=== PATIENT | male | born 1950 | race Caucasian/White ===

== ENCOUNTER 2017-10-18 23:18 | Inpatient (IN) | payer OTHER ==
[~2017-10-18] VITALS: Ht 170.2 cm; Wt 88.7 kg
[2017-10-19 00:43] LABS: BASOPHILS ABSOLUTE AUTO 0.04 K/mm3 (0.00-0.23); BASOPHILS PERCENT AUTO 1 % (0-2); EOSINOPHILS ABSOLUTE AUTO 0.41 K/mm3 (0.00-0.68); EOSINOPHILS PERCENT AUTO 5 % (0-6); Hematocrit 28.2 % (37.0-53.0); Hemoglobin 9.8 g/dL (13.5-17.5); IMMATURE GRAN ABSOLUTE AUTO 0.13 K/mm3 (0.00-0.10); IMMATURE GRAN PERCENT AUTO 2 % (0-1); LYMPHOCYTES ABSOLUTE AUTO 1.41 K/mm3 (0.84-5.20); LYMPHOCYTES PERCENT AUTO 18 % (21-46); MONOCYTES ABSOLUTE AUTO 0.96 K/mm3 (0.16-1.47); MONOCYTES PERCENT AUTO 12 % (4-13); Mean Corpuscular HGB 35.1 pg (26.0-34.0); Mean Corpuscular HGB Conc 34.8 g/dL (31.5-36.5); Mean Corpuscular Volume 101 fL (80-100); Mean Platelet Volume 9.6 fL (9.1-12.4); NEUTROPHILS ABSOLUTE AUTO 4.96 K/mm3 (1.96-9.15); NEUTROPHILS PERCENT AUTO 63 % (41-73); Platelet Count 134 K/mm3 (150-400); RDW Coefficient Variation 15.9 % (11.7-14.2); RDW Standard Deviation 55.7 fL (35.1-46.3); Red Blood Cell Count 2.79 M/mm3 (4.30-5.90); White Blood Cell Count 7.91 K/mm3 (4.00-11.30)
[2017-10-19 00:57] LABS: Alanine Aminotransfer (ALT/SGP 35 U/L (12-78); Albumin, Blood 2.7 g/dL (3.4-5.0); Albumin/Globulin Ratio 0.7 (0.8-1.8); Alk Phos 120 U/L (50-136); Anion Gap 7 mmol/L (6-16); Aspartate Aminotrans (AST/SGOT 57 U/L (12-37); Bilirubin, Total 2.5 mg/dL (0.1-1.0); Blood Urea Nitrogen 26 mg/dL (8-24); Bun/Creatinine Ratio 29.7 (12.0-20.0); CO2, Blood 24 mmol/L (21-32); Calcium, Blood 7.6 mg/dL (8.5-10.1); Chloride, Blood 107 mmol/L (98-108); Creatinine, Blood 0.87 mg/dL (0.60-1.20); Glomerular Filtration Rate >60 (60-); Glucose, Blood 100 mg/dL (70-99); Potassium, Blood 4.1 mmol/L (3.5-5.5); Sodium, Blood 138 mmol/L (136-145); Total Protein, Blood 6.7 g/dL (6.4-8.2); Troponin I 0.016 ng/mL (0.000-0.040)
[2017-10-19] MEDS ORDERED: CELE200 PO (01:20)
[2017-10-19] MEDS ORDERED: Omeprazole20 M1 PO (01:20)
[2017-10-19] MEDS ORDERED: Xalatan2.5 ML BOTHEYES (01:20)
[2017-10-19] MEDS ORDERED: QUET25 PO (01:21)
[2017-10-19] MEDS ORDERED: SERT50 PO (01:21)
[2017-10-19 01:26] LABS: Source, Urine Clean Catch
[2017-10-19 01:28] LABS: Bilirubin, Urine Neg (Neg); Blood, Urine Neg (Neg); Glucose Qualitative, Urine Neg (Neg); Ketones, Urine Neg (Neg); Leukocyte Esterase, Urine Neg (Neg); Nitrite, Urine Neg (Neg); Protein, Urine Neg (Neg); Specific Gravity, Urine 1.015 (1.003-1.022); Urobilinogen, Urine 1+ (Normal)
[2017-10-19 01:39] LABS: Appearance, Urine Clear (Clear); Color, Urine Amber (P-Yellow)
[2017-10-19 06:03] LABS: International Normalized Ratio 1.21; Prothrombin Time Results 12.3 Sec (9.7-11.5)
[2017-10-19 13:45] LABS: Hematocrit 29.6 % (37.0-53.0); Hemoglobin 9.9 g/dL (13.5-17.5)
[2017-10-20 10:16] LABS: BASOPHILS ABSOLUTE AUTO 0.03 K/mm3 (0.00-0.23); BASOPHILS PERCENT AUTO 0 % (0-2); EOSINOPHILS ABSOLUTE AUTO 0.25 K/mm3 (0.00-0.68); EOSINOPHILS PERCENT AUTO 3 % (0-6); Hematocrit 27.8 % (37.0-53.0); Hemoglobin 9.3 g/dL (13.5-17.5); IMMATURE GRAN ABSOLUTE AUTO 0.06 K/mm3 (0.00-0.10); IMMATURE GRAN PERCENT AUTO 1 % (0-1); LYMPHOCYTES ABSOLUTE AUTO 1.03 K/mm3 (0.84-5.20); LYMPHOCYTES PERCENT AUTO 13 % (21-46); MONOCYTES ABSOLUTE AUTO 0.93 K/mm3 (0.16-1.47); MONOCYTES PERCENT AUTO 12 % (4-13); Mean Corpuscular HGB Conc 33.5 g/dL (31.5-36.5); Mean Platelet Volume 9.2 fL (9.1-12.4); NEUTROPHILS ABSOLUTE AUTO 5.42 K/mm3 (1.96-9.15); NEUTROPHILS PERCENT AUTO 70 % (41-73); Platelet Count 109 K/mm3 (150-400); RDW Coefficient Variation 17.2 % (11.7-14.2); RDW Standard Deviation 62.4 fL (35.1-46.3); Red Blood Cell Count 2.66 M/mm3 (4.30-5.90); White Blood Cell Count 7.72 K/mm3 (4.00-11.30)
[2017-10-20 10:17] LABS: Mean Corpuscular Volume 105 fL (80-100)
[2017-10-20 10:37] LABS: Anion Gap 9 mmol/L (6-16); Blood Urea Nitrogen 29 mg/dL (8-24); Bun/Creatinine Ratio 37.3 (12.0-20.0); CO2, Blood 21 mmol/L (21-32); Calcium, Blood 7.1 mg/dL (8.5-10.1); Chloride, Blood 107 mmol/L (98-108); Creatinine, Blood 0.78 mg/dL (0.60-1.20); Glomerular Filtration Rate >60 (60-); Glucose, Blood 134 mg/dL (70-99); Potassium, Blood 4.1 mmol/L (3.5-5.5); Sodium, Blood 137 mmol/L (136-145)
[2017-10-20 20:46] LABS: Albumin, Body Fluid 1.2 g/dL; Lactate Dehydrogenase, Body Fl 568 U/L; Protein, Body Fluid 2.7 g/dL
[2017-10-21 03:58] LABS: BASOPHILS ABSOLUTE AUTO 0.05 K/mm3 (0.00-0.23); BASOPHILS PERCENT AUTO 1 % (0-2); EOSINOPHILS ABSOLUTE AUTO 0.54 K/mm3 (0.00-0.68); EOSINOPHILS PERCENT AUTO 6 % (0-6); Hematocrit 28.8 % (37.0-53.0); Hemoglobin 9.7 g/dL (13.5-17.5); IMMATURE GRAN ABSOLUTE AUTO 0.11 K/mm3 (0.00-0.10); IMMATURE GRAN PERCENT AUTO 1 % (0-1); LYMPHOCYTES ABSOLUTE AUTO 1.28 K/mm3 (0.84-5.20); LYMPHOCYTES PERCENT AUTO 15 % (21-46); MONOCYTES PERCENT AUTO 12 % (4-13); Mean Corpuscular HGB 34.6 pg (26.0-34.0); Mean Corpuscular HGB Conc 33.7 g/dL (31.5-36.5); Mean Corpuscular Volume 103 fL (80-100); Mean Platelet Volume 9.5 fL (9.1-12.4); NEUTROPHILS ABSOLUTE AUTO 5.71 K/mm3 (1.96-9.15); NEUTROPHILS PERCENT AUTO 66 % (41-73); Platelet Count 121 K/mm3 (150-400); RDW Coefficient Variation 17.2 % (11.7-14.2); White Blood Cell Count 8.69 K/mm3 (4.00-11.30)
[2017-10-21 04:10] LABS: International Normalized Ratio 1.26; Prothrombin Time Results 12.8 Sec (9.7-11.5)
[2017-10-21 04:17] LABS: Alanine Aminotransfer (ALT/SGP 28 U/L (12-78); Albumin, Blood 2.2 g/dL (3.4-5.0); Albumin/Globulin Ratio 0.6 (0.8-1.8); Alk Phos 118 U/L (50-136); Anion Gap 7 mmol/L (6-16); Aspartate Aminotrans (AST/SGOT 44 U/L (12-37); Bilirubin, Direct 1.2 mg/dL (0.0-0.3); Bilirubin, Total 2.9 mg/dL (0.1-1.0); Blood Urea Nitrogen 31 mg/dL (8-24); Bun/Creatinine Ratio 35.6 (12.0-20.0); CO2, Blood 25 mmol/L (21-32); Calcium, Blood 7.2 mg/dL (8.5-10.1); Chloride, Blood 105 mmol/L (98-108); Creatinine, Blood 0.87 mg/dL (0.60-1.20); Glomerular Filtration Rate >60 (60-); Glucose, Blood 99 mg/dL (70-99); Potassium, Blood 3.5 mmol/L (3.5-5.5); Sodium, Blood 137 mmol/L (136-145); Total Protein, Blood 6.2 g/dL (6.4-8.2)
[2017-10-22 04:03] LABS: BASOPHILS ABSOLUTE AUTO 0.05 K/mm3 (0.00-0.23); BASOPHILS PERCENT AUTO 1 % (0-2); EOSINOPHILS ABSOLUTE AUTO 0.48 K/mm3 (0.00-0.68); EOSINOPHILS PERCENT AUTO 5 % (0-6); Hemoglobin 9.5 g/dL (13.5-17.5); IMMATURE GRAN ABSOLUTE AUTO 0.09 K/mm3 (0.00-0.10); IMMATURE GRAN PERCENT AUTO 1 % (0-1); LYMPHOCYTES ABSOLUTE AUTO 1.39 K/mm3 (0.84-5.20); LYMPHOCYTES PERCENT AUTO 16 % (21-46); MONOCYTES ABSOLUTE AUTO 0.81 K/mm3 (0.16-1.47); MONOCYTES PERCENT AUTO 9 % (4-13); Mean Corpuscular HGB 34.9 pg (26.0-34.0); Mean Corpuscular HGB Conc 33.9 g/dL (31.5-36.5); Mean Corpuscular Volume 103 fL (80-100); Mean Platelet Volume 9.8 fL (9.1-12.4); NEUTROPHILS ABSOLUTE AUTO 6.01 K/mm3 (1.96-9.15); NEUTROPHILS PERCENT AUTO 68 % (41-73); Platelet Count 132 K/mm3 (150-400); RDW Coefficient Variation 17.1 % (11.7-14.2); RDW Standard Deviation 61.3 fL (35.1-46.3); Red Blood Cell Count 2.72 M/mm3 (4.30-5.90); White Blood Cell Count 8.83 K/mm3 (4.00-11.30)
[2017-10-22 04:28] LABS: Anion Gap 7 mmol/L (6-16); Blood Urea Nitrogen 32 mg/dL (8-24); Bun/Creatinine Ratio 30.8 (12.0-20.0); CO2, Blood 27 mmol/L (21-32); Calcium, Blood 7.1 mg/dL (8.5-10.1); Chloride, Blood 103 mmol/L (98-108); Creatinine, Blood 1.04 mg/dL (0.60-1.20); Glomerular Filtration Rate >60 (60-); Glucose, Blood 103 mg/dL (70-99); Potassium, Blood 3.3 mmol/L (3.5-5.5); Sodium, Blood 137 mmol/L (136-145)
[2017-10-22 12:08] LABS: HBSAG SCREEN Negative (Negative); HEP B CORE AB, TOT Negative (Negative); HEP C VIRUS AB <0.1 (0.0-0.9)
[2017-10-23 16:22] LABS: Percent Saturation 31.5 % (20.0-50.0)
[2017-10-25 04:38] LABS: Anion Gap 7 mmol/L (6-16); Blood Urea Nitrogen 28 mg/dL (8-24); Bun/Creatinine Ratio 27.2 (12.0-20.0); CO2, Blood 27 mmol/L (21-32); Calcium, Blood 7.2 mg/dL (8.5-10.1); Chloride, Blood 101 mmol/L (98-108); Creatinine, Blood 1.03 mg/dL (0.60-1.20); Glomerular Filtration Rate >60 (60-); Glucose, Blood 102 mg/dL (70-99); Potassium, Blood 3.4 mmol/L (3.5-5.5); Sodium, Blood 135 mmol/L (136-145)
[2017-10-25 06:12] LABS: COMPLEMENT C3, SERUM 148 mg/dL (82-167); COMPLEMENT C4, SERUM 16 mg/dL (14-44)
[2017-10-26 04:43] LABS: BASOPHILS ABSOLUTE AUTO 0.07 K/mm3 (0.00-0.23); BASOPHILS PERCENT AUTO 1 % (0-2); EOSINOPHILS ABSOLUTE AUTO 0.52 K/mm3 (0.00-0.68); EOSINOPHILS PERCENT AUTO 5 % (0-6); Hematocrit 29.7 % (37.0-53.0); Hemoglobin 10.2 g/dL (13.5-17.5); IMMATURE GRAN ABSOLUTE AUTO 0.09 K/mm3 (0.00-0.10); IMMATURE GRAN PERCENT AUTO 1 % (0-1); LYMPHOCYTES ABSOLUTE AUTO 1.59 K/mm3 (0.84-5.20); LYMPHOCYTES PERCENT AUTO 17 % (21-46); MONOCYTES ABSOLUTE AUTO 1.04 K/mm3 (0.16-1.47); MONOCYTES PERCENT AUTO 11 % (4-13); Mean Corpuscular HGB 35.3 pg (26.0-34.0); Mean Corpuscular HGB Conc 34.3 g/dL (31.5-36.5); Mean Corpuscular Volume 103 fL (80-100); Mean Platelet Volume 9.6 fL (9.1-12.4); NEUTROPHILS ABSOLUTE AUTO 6.33 K/mm3 (1.96-9.15); NEUTROPHILS PERCENT AUTO 66 % (41-73); Platelet Count 186 K/mm3 (150-400); RDW Coefficient Variation 16.6 % (11.7-14.2); RDW Standard Deviation 62.5 fL (35.1-46.3); Red Blood Cell Count 2.89 M/mm3 (4.30-5.90); White Blood Cell Count 9.64 K/mm3 (4.00-11.30)
[2017-10-26 05:04] LABS: Anion Gap 9 mmol/L (6-16); Blood Urea Nitrogen 26 mg/dL (8-24); Bun/Creatinine Ratio 26.4 (12.0-20.0); CO2, Blood 24 mmol/L (21-32); Calcium, Blood 7.2 mg/dL (8.5-10.1); Chloride, Blood 101 mmol/L (98-108); Creatinine, Blood 0.98 mg/dL (0.60-1.20); Glomerular Filtration Rate >60 (60-); Glucose, Blood 98 mg/dL (70-99); Potassium, Blood 3.3 mmol/L (3.5-5.5); Sodium, Blood 134 mmol/L (136-145)
[2017-10-26] MEDS ORDERED: ACET325 PO (10:01)
[2017-10-26] MEDS ORDERED: ALBU2.5V5 NEB (10:02)
[2017-10-26] MEDS ORDERED: FURO80 PO (10:03)
[2017-10-26] MEDS ORDERED: DOCU100 PO (10:03)
[2017-10-26] MEDS ORDERED: Oxycodone-Apap1 EAC3 PO (10:05)
[2017-10-26] MEDS ORDERED: GAVILAX17 GM PO (10:06)
[2017-10-26] MEDS ORDERED: SPIR50 PO (10:06)
[2017-10-27 16:07] LABS: ANTI-DSDNA ANTIBODIES 1 IU/mL (0-9); RNP ANTIBODIES <0.2 AI (0.0-0.9); SJOGREN'S ANTI-SS-A <0.2 AI (0.0-0.9); SJOGREN'S ANTI-SS-B <0.2 AI (0.0-0.9); SMITH ANTIBODIES <0.2 AI (0.0-0.9)
== END 2017-10-26 12:00 | disposition home or self-care (01) | DRG 163 ==
LOC: ER 23:18 → ERHOLD 10-19 05:39 → ICUW 10-19 05:39 → PCU 10-19 05:39 → ICUW 10-19 07:38 → PCU 10-22 15:46
PROVIDERS: Emergency Medicine; Hospitalist; Internal Medicine; Internal Medicine Gastroenterology; Surgery
PROC: 0W9930Z Drainage of Right Pleural Cavity with Drainage Device, Percutaneous Approach (ICD-10-PCS; 2017-10-19)
PROC: 0BCN4ZZ Extirpation of Matter from Right Pleura, Percutaneous Endoscopic Approach (ICD-10-PCS; 2017-10-19)
PROC: 0BQT0ZZ Repair Diaphragm, Open Approach (ICD-10-PCS; principal; 2017-10-19 11:00)
PROC: 0PS104Z Reposition 1 to 2 Ribs with Internal Fixation Device, Open Approach (ICD-10-PCS; 2017-10-19 11:00)
DX: S27.809A Unspecified injury of diaphragm, initial encounter (principal); J96.01 Acute respiratory failure with hypoxia; S27.2XXA Traumatic hemopneumothorax, initial encounter; S32.010A Wedge compression fracture of first lumbar vertebra, initial encounter for closed fracture; S27.321A Contusion of lung, unilateral, initial encounter; R18.8 Other ascites; S22.41XA Multiple fractures of ribs, right side, initial encounter for closed fracture; J90 Pleural effusion, not elsewhere classified; J98.11 Atelectasis; T79.7XXA Traumatic subcutaneous emphysema, initial encounter; K74.60 Unspecified cirrhosis of liver; H40.9 Unspecified glaucoma; E87.6 Hypokalemia; K21.9 Gastro-esophageal reflux disease without esophagitis; V86.99XA Unspecified occupant of other special all-terrain or other off-road motor vehicle injured in nontraffic accident, initial encounter; Z79.899 Other long term (current) drug therapy; Z86.73 Personal history of transient ischemic attack (TIA), and cerebral infarction without residual deficits; Z79.82 Long term (current) use of aspirin
CPT/HCPCS: 31500; 36415; 71045; 71046; 71260; 76700; 80048; 80053; 81003; 82042; 82105; 82248; 82390; 82728; 83516; 83540; 83550; 83615; 83880; 84157; 84466; 84484; 85014; 85018; 85025; 85610; 85730; 86317; 86704; 86708; 86803; 86850; 86900; 86901; 87340; 93005; 93010; 94640; 94667; 94760; 96374; 96375; 96376; 97110; 97116; 97162; 97530; 99285-25; G8978; G8979; J0295; J0330; J1650; J1940; J1956; J2001; J2710; J3010; J3411; J7120; Q9967

== ENCOUNTER 2018-12-18 12:50 | Day surgery (SDC) | payer OTHER ==
[~2018-12-18] VITALS: Ht 172.7 cm; Wt 77.0 kg
[~2018-12-18 12:50] MED LIST: ACET325 PO; ALBU2.5V5 NEB; CELE200 PO; DOCU100 PO; FURO80 PO; GAVILAX17 GM PO; Omeprazole20 M1 PO; Oxycodone-Apap1 EAC3 PO; QUET25 PO; SERT50 PO; SPIR50 PO; Xalatan2.5 ML BOTHEYES
[2018-12-18] MEDS ORDERED: HYDHCL25 (13:24)
--- NOTE | 2018-12-18 15:10 | NUR ---
12/18/18 1510 Silvia Waldron PT INSTRUCTED TO REMAIN ON LIQUID DIET FOR THE REST OF THE DAY AND RESUME REGULAR DIET TOMORROW TOLERATED. PT AND SPOUSE, DENNIS, EXPRESSED UNDERSTANDING.
== END 2018-12-18 14:39 | disposition home or self-care (01) ==
LOC: ORSCSDS 12:50
PROVIDERS: Internal Medicine Gastroenterology
PROC: 06L38CZ Occlusion of Esophageal Vein with Extraluminal Device, Via Natural or Artificial Opening Endoscopic (ICD-10-PCS; principal; 2018-12-18 14:00)
DX: Z13.810 Encounter for screening for upper gastrointestinal disorder (principal); K74.69 Other cirrhosis of liver; I85.10 Secondary esophageal varices without bleeding; K76.6 Portal hypertension; K31.89 Other diseases of stomach and duodenum; Z86.73 Personal history of transient ischemic attack (TIA), and cerebral infarction without residual deficits; E78.5 Hyperlipidemia, unspecified; Z79.899 Other long term (current) drug therapy; Z79.82 Long term (current) use of aspirin
CPT/HCPCS: J2704; J7120

== ENCOUNTER → 2019-01-02 | Outpatient (CLI) | payer OTHER ==
[~2019-01-02] MED LIST changes: +HYDHCL25
== END | disposition home or self-care (01) ==
LOC: LAB SHORT 13:05 → LAB EV 13:05
DX: R30.9 Painful micturition, unspecified (principal)
CPT/HCPCS: 87086

== ENCOUNTER 2019-01-04 12:49 | Day surgery (SDC) | payer OTHER ==
--- NOTE | 2019-01-04 14:11 | NUR ---
01/04/19 1411 Urszula East PT DRINKING WATER IN [employer] [facility] FOR THE FEEBLE-MINDED. DR. GREENE INFORMED AND CHOSE TO RESCHEDULE PROCEDURE.
== END 2019-01-04 14:05 | disposition home or self-care (01) ==
LOC: ORSCSDS 12:49
DX: I85.00 Esophageal varices without bleeding (principal); Z53.9 Procedure and treatment not carried out, unspecified reason
CPT/HCPCS: J2704; J7120

== ENCOUNTER 2019-01-13 10:53 | Day surgery (SDC) | payer OTHER ==
[~2019-01-13] VITALS: Ht 172.7 cm; Wt 77.6 kg
== END 2019-01-13 13:00 | disposition home or self-care (01) ==
LOC: ORSCSDS 10:53
PROVIDERS: Internal Medicine Gastroenterology
PROC: 06L38CZ Occlusion of Esophageal Vein with Extraluminal Device, Via Natural or Artificial Opening Endoscopic (ICD-10-PCS; principal; 2019-01-13 15:30)
DX: I85.00 Esophageal varices without bleeding (principal); F41.8 Other specified anxiety disorders; I10 Essential (primary) hypertension; K74.60 Unspecified cirrhosis of liver; K76.6 Portal hypertension; K31.89 Other diseases of stomach and duodenum; Z79.899 Other long term (current) drug therapy; I25.2 Old myocardial infarction; Z79.82 Long term (current) use of aspirin
CPT/HCPCS: J2704; J7120

== ENCOUNTER 2019-04-02 08:32 | Day surgery (SDC) | payer OTHER ==
--- NOTE | 2019-04-02 10:16 | NUR ---
PATIENT SITTING UP IN BED AFTER 30 MINUTES OF LAYING ON HIS RIGHT SIDE. DRINKING COFFEE.
--- NOTE | 2019-04-02 10:29 | NUR ---
BANDAIDE NOTED TO RIGHT LATERAL TORSO BELOW THE RIB CAGE. INTACT WTIH NO VISIBLE DRAINAGE, SWELLING, ERYTHEMA OR BRUISING NOTED. SKIN FEELS SOFT WITH NO NOTED HEMATOMA. PATIENT C/O 4/10 DULL PAIN TO BX SITE AND STATES IT'S "NORMAL". DECLINES ANALGESIC. OFFERED TO CALL THE DOCTOR TO GET AN ORDER.
--- NOTE | 2019-04-02 10:54 | NUR ---
REPORT FROM WALI RICE RN. BIOPSY SITE WITHOUT HEMATOMA, BLEEDING. PT STATES " PAIN INS SUBSIDING". SITTING UP DRINKING COFFEE.
--- NOTE | 2019-04-02 11:26 | NUR ---
Dressing to procedure site clean, dry, intact with no visible drainage, swelling, erythema or bruising noted. Discharge instructions reviewed with patient. Patient verbalizes understanding. Copy given to patient to take home. ALL BELONINGS RETURNED TO PATIENT.
== END 2019-04-02 23:12 | disposition home or self-care (01) ==
LOC: US 08:32
DX: K74.60 Unspecified cirrhosis of liver (principal); K75.9 Inflammatory liver disease, unspecified; I10 Essential (primary) hypertension; F41.9 Anxiety disorder, unspecified; F32.9 Major depressive disorder, single episode, unspecified; K21.9 Gastro-esophageal reflux disease without esophagitis; Z79.899 Other long term (current) drug therapy; Z79.82 Long term (current) use of aspirin; Z88.8 Allergy status to other drugs, medicaments and biological substances
CPT/HCPCS: 47000; 76942; 88307; 88313

== ENCOUNTER 2019-08-25 10:19 | Day surgery (SDC) | payer OTHER ==
[~2019-08-25] VITALS: Ht 172.7 cm; Wt 79.2 kg
[~2019-08-25 10:19] MED LIST changes: +ASPIR 8181 MG PO; +ATOR10 PO; +CLON1 PO; +FERROUSUL325 MG PO; +HYDHCL25 PO; +Norco 10-325 T1 EACH PO; +OMEPRAZOLE20 MG PO; +POTA8 PO; +[UNRECOGNIZED DRUG - OTHER] PO
== END 2019-08-25 11:59 | disposition home or self-care (01) ==
LOC: ORSCSDS 10:19
PROVIDERS: Internal Medicine Gastroenterology
PROC: 0DJ08ZZ Inspection of Upper Intestinal Tract, Via Natural or Artificial Opening Endoscopic (ICD-10-PCS; principal; 2019-08-25 11:30)
DX: K74.60 Unspecified cirrhosis of liver (principal); Z13.810 Encounter for screening for upper gastrointestinal disorder; K21.9 Gastro-esophageal reflux disease without esophagitis; K76.6 Portal hypertension; K31.89 Other diseases of stomach and duodenum; I10 Essential (primary) hypertension; E78.5 Hyperlipidemia, unspecified; Z86.73 Personal history of transient ischemic attack (TIA), and cerebral infarction without residual deficits; F41.8 Other specified anxiety disorders; Z79.82 Long term (current) use of aspirin; Z79.899 Other long term (current) drug therapy
CPT/HCPCS: J2704; J7120

== ENCOUNTER 2020-12-12 14:21 | Observation (INO) | payer OTHER ==
[~2020-12-12] VITALS: Ht 172.7 cm; Wt 70.3 kg
[2020-12-12] MEDS ORDERED: CALCIUM 600 +1 EA11 PO (14:49)
[2020-12-12] MEDS ORDERED: FURO40 PO ×2 (14:50→18:49)
[2020-12-12] MEDS ORDERED: NEURONTIN600 MG PO (14:50)
[2020-12-12] MEDS ORDERED: Hydroxyzine HCl50 MG PO (14:51)
[2020-12-12] MEDS ORDERED: MELA3 PO (14:51)
[2020-12-12] MEDS ORDERED: OMEP20ER PO (14:51)
[2020-12-12] MEDS ORDERED: TIMO.5OPSO LEFTEYE (14:52)
[2020-12-12] MEDS ORDERED: SERT100 PO (14:52)
[2020-12-12 15:19] LABS: BASOPHILS ABSOLUTE AUTO 0.07 K/mm3 (0.00-0.23); BASOPHILS PERCENT AUTO 1 % (0-2); EOSINOPHILS ABSOLUTE AUTO 0.46 K/mm3 (0.00-0.68); EOSINOPHILS PERCENT AUTO 5 % (0-6); Hematocrit 29.6 % (37.0-53.0); Hemoglobin 10.4 g/dL (13.5-17.5); IMMATURE GRAN ABSOLUTE AUTO 0.06 K/mm3 (0.00-0.10); IMMATURE GRAN PERCENT AUTO 1 % (0-1); LYMPHOCYTES ABSOLUTE AUTO 1.64 K/mm3 (0.84-5.20); LYMPHOCYTES PERCENT AUTO 19 % (21-46); MONOCYTES ABSOLUTE AUTO 1.15 K/mm3 (0.16-1.47); MONOCYTES PERCENT AUTO 14 % (4-13); Mean Corpuscular HGB 33.8 pg (26.0-34.0); Mean Corpuscular HGB Conc 35.1 g/dL (31.5-36.5); Mean Corpuscular Volume 96 fL (80-100); Mean Platelet Volume 10.5 fL (9.1-12.4); NEUTROPHILS ABSOLUTE AUTO 5.16 K/mm3 (1.96-9.15); NEUTROPHILS PERCENT AUTO 60 % (41-73); Platelet Count 140 K/mm3 (150-400); RDW Coefficient Variation 16.6 % (11.7-14.2); RDW Standard Deviation 58.7 fL (35.1-46.3); Red Blood Cell Count 3.08 M/mm3 (4.30-5.90); White Blood Cell Count 8.54 K/mm3 (4.00-11.30)
[2020-12-12 15:37] LABS: Albumin, Blood 1.6 g/dL (3.4-5.0); Albumin/Globulin Ratio 0.3 (0.8-1.8); Bilirubin, Total 1.5 mg/dL (0.1-1.0); Bun/Creatinine Ratio 11.7 (12.0-20.0); Calcium, Blood 7.7 mg/dL (8.5-10.1); Creatinine, Blood 1.37 mg/dL (0.60-1.20); Globulin, Blood 4.6 g/dL (2.2-4.0); Magnesium, Blood 1.9 mg/dL (1.6-2.4); Potassium, Blood 4.2 mmol/L (3.5-5.5); Total Protein, Blood 6.2 g/dL (6.4-8.2); Troponin I 0.016 ng/mL (0.000-0.040)
[2020-12-12 15:42] LABS: Thyroid Stimulating Hormone 1.59 uIU/mL (0.360-4.800)
[2020-12-12 15:45] LABS: International Normalized Ratio 1.36
[2020-12-12] MEDS ORDERED: FOLI1 PO (18:49)
[2020-12-12] MEDS ORDERED: LATA.005SO BOTHEYES (18:51)
[2020-12-12 19:00] LABS: SARS-Cov-2 (COVID-19) PCR, MMC NEGATIVE (NEGATIVE)
--- NOTE | 2020-12-12 22:45 | NUR ---
REPORT RECEIVED FROM ARINA GUZMAN RN. PT TRANSPORTED TO MEDICAL FLOOR VIA GURNEY, AMBULATED SELF TO BED WITH ASSIST OF 1, STEADY BUT WEAK GAIT. PT SETTLED IN TO ROOM, VS AND WT TAKEN. IN NAD. NO ACUTE NEEDS ASSESSED AT THIS TIME. ORIENTED TO ROOM AND USE OF CALL LIGHT. BED IN LOW AND LOCKED POSITION WITH ALARMS ON.
--- NOTE | 2020-12-13 04:24 | NUR ---
SHIFT SUMMARY PT ASLEEP, IN NAD. NO ACUTE CONCERNS TO REPORT SINCE ARRIVAL TO MEDICAL FLOOR. APPEARED TO SLEEP ON AND OFF T/O NIGHT. VS REVIEWED,WNL. NO CARDIAC EVENTS REPORTED OVERNIGHT. NO S/S RESP DISTRESS. NO ACUTE NEEDS ASSESSED AT THIS TIME. CALL LIGHT, POSSESSIONS IN REACH, BED IN LOW AND LOCKED POSITION WITH ALARMS ON. WILL CONTINUE TO PROVIDE CARE UNTIL REPORT GIVEN TO ONCOMING RN.
[2020-12-13 05:28] LABS: Bun/Creatinine Ratio 12.5 (12.0-20.0); Calcium, Blood 7.7 mg/dL (8.5-10.1); Creatinine, Blood 1.36 mg/dL (0.60-1.20); Potassium, Blood 4.3 mmol/L (3.5-5.5)
--- NOTE | 2020-12-13 18:01 | NUR ---
Alert and oriented x 1, Vital signs are stable. Blood culture is positive for gram positive cocci. Start Vancomycin and Ceftriaxone for PNA. worked with PT/OT for strength and endurance , able to walk around the room. IV fluid LR infusing at 60 ml/hr. One person assist with ADLS . Continue to monitor.
--- NOTE | 2020-12-14 07:33 | NUR ---
no changes noted for Conrad from previous shift. patient slept well overnight without any complaints of pain or discomfort.
--- NOTE | 2020-12-14 18:57 | NUR ---
Alert and oriented x3 , hard of hearing , however used hearing aids. Continue on Vancomycin and Rocephine for PNA, No adverse effects noted. vital signs are stable. Ambulate with walker with SBA. On room air , no SOB noted. Worked with PT /OT for strength and endurance , it was tolerated. Continue to monitor.
[2020-12-15 04:33] LABS: Hemoglobin 10.7 g/dL (13.5-17.5); Mean Corpuscular HGB 33.5 pg (26.0-34.0); Mean Corpuscular HGB Conc 34.5 g/dL (31.5-36.5); Mean Corpuscular Volume 97 fL (80-100); Platelet Count 127 K/mm3 (150-400); RDW Coefficient Variation 16.5 % (11.7-14.2); RDW Standard Deviation 59.2 fL (35.1-46.3); Red Blood Cell Count 3.19 M/mm3 (4.30-5.90); White Blood Cell Count 9.22 K/mm3 (4.00-11.30)
[2020-12-15 04:57] LABS: Albumin, Blood 1.5 g/dL (3.4-5.0); Albumin/Globulin Ratio 0.3 (0.8-1.8); Bilirubin, Total 1.3 mg/dL (0.1-1.0); Bun/Creatinine Ratio 16.7 (12.0-20.0); Calcium, Blood 7.8 mg/dL (8.5-10.1); Creatinine, Blood 1.5 mg/dL (0.60-1.20); Globulin, Blood 4.4 g/dL (2.2-4.0); Potassium, Blood 4.4 mmol/L (3.5-5.5); Total Protein, Blood 5.9 g/dL (6.4-8.2)
--- NOTE | 2020-12-15 05:13 | NUR ---
patient feeling much better. still feels SOB with conversation or min exertion. Conrad has been oob to baathroom independently without 02. He has learned to turn off the bed alarm and walk into bathroom without desaturation. No complaints of discomfort .
[2020-12-15] MEDS ORDERED: CEFD300 PO (12:31)
[2020-12-15 13:20] LABS: Vancomycin, Trough 10.1 ug/mL (5.0-10.0)
== END 2020-12-15 13:29 | disposition home health service (06) ==
LOC: ER 14:21 → MEDS 14:22
PROVIDERS: Emergency Medicine; Internal Medicine; ADMIT Internal Medicine
DX: J96.01 Acute respiratory failure with hypoxia (principal); R07.9 Chest pain, unspecified; I45.10 Unspecified right bundle-branch block; I95.9 Hypotension, unspecified; J18.9 Pneumonia, unspecified organism; K74.60 Unspecified cirrhosis of liver; D64.9 Anemia, unspecified; N18.30 Chronic kidney disease, stage 3 unspecified; R59.9 Enlarged lymph nodes, unspecified; K76.6 Portal hypertension; K80.20 Calculus of gallbladder without cholecystitis without obstruction; I08.3 Combined rheumatic disorders of mitral, aortic and tricuspid valves; Z88.8 Allergy status to other drugs, medicaments and biological substances; Z86.16 Personal history of COVID-19; Z20.822 Contact with and (suspected) exposure to COVID-19; Z99.81 Dependence on supplemental oxygen
CPT/HCPCS: 36415; 71045; 71260; 80048; 80053; 80202; 82140; 83605; 83735; 83880; 84145; 84443; 84484; 85025; 85027; 85610; 87040; 87077; 87186; 93005; 93010; 93306; 97110; 97116; 97162; 97530; 99285-25; A9270; J0696; J1650; J3370; J7050; J7120; Q9967; U0004

== ENCOUNTER 2020-12-17 19:27 | Inpatient (IN) | payer OTHER ==
[~2020-12-17] VITALS: Ht 172.7 cm; Wt 75.7 kg
[~2020-12-17 19:27] MED LIST changes: +CEFD300 PO; +FOLI1 PO; +FURO40 PO; +Hydroxyzine HCl50 MG PO; +LATA.005SO BOTHEYES; +MELA3 PO; +NEURONTIN600 MG PO; +OMEP20ER PO; +OYSTER SHELL 51 EAC2 PO; +SERT100 PO; +TIMO.5OPSO LEFTEYE
[2020-12-17 20:01] LABS: BASOPHILS ABSOLUTE AUTO 0.12 K/mm3 (0.00-0.23); BASOPHILS PERCENT AUTO 1 % (0-2); EOSINOPHILS ABSOLUTE AUTO 0.84 K/mm3 (0.00-0.68); EOSINOPHILS PERCENT AUTO 5 % (0-6); Hematocrit 35.7 % (37.0-53.0); Hemoglobin 12.2 g/dL (13.5-17.5); IMMATURE GRAN ABSOLUTE AUTO 0.43 K/mm3 (0.00-0.10); IMMATURE GRAN PERCENT AUTO 2 % (0-1); LYMPHOCYTES ABSOLUTE AUTO 2.56 K/mm3 (0.84-5.20); LYMPHOCYTES PERCENT AUTO 14 % (21-46); MONOCYTES ABSOLUTE AUTO 2.09 K/mm3 (0.16-1.47); MONOCYTES PERCENT AUTO 12 % (4-13); Mean Corpuscular HGB 33.9 pg (26.0-34.0); Mean Corpuscular HGB Conc 34.2 g/dL (31.5-36.5); Mean Corpuscular Volume 99 fL (80-100); Mean Platelet Volume 9.9 fL (9.1-12.4); NEUTROPHILS ABSOLUTE AUTO 11.81 K/mm3 (1.96-9.15); NEUTROPHILS PERCENT AUTO 66 % (41-73); Platelet Count 209 K/mm3 (150-400); RDW Coefficient Variation 16.8 % (11.7-14.2); White Blood Cell Count 17.85 K/mm3 (4.00-11.30)
[2020-12-17 20:21] LABS: Alanine Aminotransfer (ALT/SGP 38 U/L (12-78); Albumin, Blood 1.8 g/dL (3.4-5.0); Albumin/Globulin Ratio 0.3 (0.8-1.8); Alk Phos 157 U/L (50-136); Anion Gap 13 mmol/L (6-16); Aspartate Aminotrans (AST/SGOT 85 U/L (12-37); Bilirubin, Total 1.2 mg/dL (0.1-1.0); Blood Urea Nitrogen 29 mg/dL (8-24); Bun/Creatinine Ratio 19.6 (12.0-20.0); CO2, Blood 17 mmol/L (21-32); Chloride, Blood 104 mmol/L (98-108); Creatinine, Blood 1.48 mg/dL (0.60-1.20); Globulin, Blood 5.6 g/dL (2.2-4.0); Glomerular Filtration Rate 47 (60-); Glucose, Blood 144 mg/dL (70-99); Sodium, Blood 134 mmol/L (136-145); Total Protein, Blood 7.4 g/dL (6.4-8.2); Troponin I <0.015 ng/mL (0.000-0.040)
[2020-12-17 21:39] LABS: SARS-Cov-2 (COVID-19) PCR, MMC POSITIVE (NEGATIVE)
[2020-12-18 00:41] LABS: Source, Urine Clean Catch
[2020-12-18 00:47] LABS: Bilirubin, Urine Neg (Neg); Blood, Urine Neg (Neg); Glucose Qualitative, Urine Neg (Neg); Ketones, Urine 1+ (Neg); Leukocyte Esterase, Urine Neg (Neg); Nitrite, Urine Neg (Neg); Protein, Urine 1+ (Neg); Urobilinogen, Urine NORM (Normal)
[2020-12-18 00:50] LABS: Appearance, Urine Clear (Clear); Color, Urine Yellow (P-Yellow)
--- NOTE | 2020-12-18 02:43 | NUR ---
ADMIT NOTE PT ARRIVED TO PCU FROM ED VIA ED STRETCHER AT APPROX 0145. PT WAS SLID BY 3 STAFF FROM ED STRETCHER TO PCU BED. PT A&OX4. ANSWERS QUESTIONS APPROPRIATELY. SP02>90% ON 15L OXYMIZER. PT SOB W/ ANY EXERTION. VISIBLY TACHYPENIC AFTER ROLLING SIDE TO SIDE TO REMOVE EXCESS LINENS. TELEMETRY READS NSR, HR 60'S-70'S. ABX INFUSING PER EMAR. PT ORIENTED TO ROOM, CALL LIGHT. TO BRING IN MEDICATION LIST AND ADVANCED DIRECTIVE IN AM. CALL LIGHT IN REACH.
[2020-12-18 03:50] LABS: BASOPHILS ABSOLUTE AUTO 0.04 K/mm3 (0.00-0.23); BASOPHILS PERCENT AUTO 0 % (0-2); EOSINOPHILS ABSOLUTE AUTO 0.15 K/mm3 (0.00-0.68); EOSINOPHILS PERCENT AUTO 1 % (0-6); Hematocrit 28.3 % (37.0-53.0); Hemoglobin 9.8 g/dL (13.5-17.5); IMMATURE GRAN ABSOLUTE AUTO 0.21 K/mm3 (0.00-0.10); IMMATURE GRAN PERCENT AUTO 2 % (0-1); LYMPHOCYTES ABSOLUTE AUTO 0.63 K/mm3 (0.84-5.20); LYMPHOCYTES PERCENT AUTO 5 % (21-46); MONOCYTES ABSOLUTE AUTO 0.67 K/mm3 (0.16-1.47); MONOCYTES PERCENT AUTO 6 % (4-13); Mean Corpuscular HGB 33.8 pg (26.0-34.0); Mean Corpuscular HGB Conc 34.6 g/dL (31.5-36.5); Mean Corpuscular Volume 98 fL (80-100); Mean Platelet Volume 10.4 fL (9.1-12.4); NEUTROPHILS ABSOLUTE AUTO 10.44 K/mm3 (1.96-9.15); NEUTROPHILS PERCENT AUTO 86 % (41-73); Platelet Count 118 K/mm3 (150-400); RDW Coefficient Variation 16.8 % (11.7-14.2); RDW Standard Deviation 59.9 fL (35.1-46.3); White Blood Cell Count 12.14 K/mm3 (4.00-11.30)
[2020-12-18 04:22] LABS: Albumin, Blood 1.3 g/dL (3.4-5.0); Albumin/Globulin Ratio 0.3 (0.8-1.8); Bilirubin, Total 1.1 mg/dL (0.1-1.0); Bun/Creatinine Ratio 20.7 (12.0-20.0); Calcium, Blood 7.4 mg/dL (8.5-10.1); Creatinine, Blood 1.35 mg/dL (0.60-1.20); Globulin, Blood 4.2 g/dL (2.2-4.0); Potassium, Blood 4.4 mmol/L (3.5-5.5); Total Protein, Blood 5.5 g/dL (6.4-8.2)
--- NOTE | 2020-12-18 05:14 | NUR ---
SHIFT SUMMARY NO ACUTE CHANGES SINCE ADMIT. PT A&OX4. SP02>90% ON 15L NC. SOB W/ ANY EXERTION. TELEMETRY READS NSR, HR 60'S. PT RESTED IN ROOM, HAD TROUBLE FALLING ASLEEP. CALL LIGHT IN REACH. WILL GIVE REPORT TO ONCOMING NURSE.
--- NOTE | 2020-12-18 10:54 | NUR ---
CARE ASSUMPTION: PT ALERT AND ORIENTED X4. NEURO WNL. DENIES NUMBNESS/TINGLING. ON 12L OXYMIZER SATING LOW 90'S. DESATS WITH ACTIVITY IN BED. BED BATH THIS AM. ABLE TO TURN SELF IN BED. UPPER LOBES SONDING CLEAR AND DIM IN BASES. NO COUGH AT THIS TIME. SPUTUM WAITING TO BE COLLECTED. TELE SHOWING SINUS WITH HR 60-70'S. BP HAS BEEN SOFT. MANUAL BP TAKEN THIS AM. DR. ANDERSON AWARE. WILL CONTINUE TO MONITOR. PPP. NO SIGNS OF EDEMA. BOWEL TONES PRESENT. DENIES ABDOMINAL PAIN/NAUSEA. USING URINAL AT BEDSIDE. NPO AT THIS TIME. ABLE TO TAKE MORNING PILLS WITH WATER. LEFT UPPER ARM IV SALINE LOCKED AND FLUSHING WELL. WILL CONTINUE TO MONITOR.
--- NOTE | 2020-12-18 15:22 | NUR ---
VITAL SIGNS REMAIN STABLE. BP ON SOFTER END. IN TO VISIT AT THIS TIME. ALBUMIN INFUSING. ON 15L OXYMIZER WHILE EATING. WILL CONTINUE TO MONITOR AND TITRATE OXYGEN ABLE. CALL LIGHT IN REACH.
--- NOTE | 2020-12-18 15:57 | NUR ---
Patient is lying in bed and alert. Patient immediately tells me about his medical issues. He then talks at length about his spouse, his 3 grown children and his 9 grandchildren. He talks about his strong Tenriism dale, his struggle with guilt and worry about his family and his tour of duty in the [place]. I hear confession, normalize his experience and provide therapeutic listening, pastoral breastfeeding peer counselor and prayer. Patient responds well and shows signs of increased peace. I will continue to remain available to patient and family.
--- NOTE | 2020-12-18 17:58 | NUR ---
SHIFT SUMMARY: NO ACUTE CHANGES. BP REMAINS SOFT. ON 15L O2 VIA OXYMIZER WHEN EATING. ABLE TO TITRATE DOWN TO 13L AT REST. DESATS WITH ACTIVITY. SATING LOW 90'S. TELE REMAINS SINUS RHYTHM WITH HR 60-70'S. PO INTAKE REMAINS LOW. IN TO VISIT. MINIAL COUGH WITH NO SPUTUM. UNABLE TO OBTAIN SPUTUM SAMPLE. CALL LIGHT IN REACH. WILL REPORT OFF TO RN ACUTE RN.
[2020-12-19 04:06] LABS: BASOPHILS ABSOLUTE AUTO 0.02 K/mm3 (0.00-0.23); BASOPHILS PERCENT AUTO 0 % (0-2); EOSINOPHILS ABSOLUTE AUTO 0.02 K/mm3 (0.00-0.68); EOSINOPHILS PERCENT AUTO 0 % (0-6); Hematocrit 27.2 % (37.0-53.0); Hemoglobin 9.5 g/dL (13.5-17.5); IMMATURE GRAN ABSOLUTE AUTO 0.12 K/mm3 (0.00-0.10); IMMATURE GRAN PERCENT AUTO 1 % (0-1); LYMPHOCYTES ABSOLUTE AUTO 0.95 K/mm3 (0.84-5.20); LYMPHOCYTES PERCENT AUTO 7 % (21-46); MONOCYTES ABSOLUTE AUTO 0.82 K/mm3 (0.16-1.47); MONOCYTES PERCENT AUTO 6 % (4-13); Mean Corpuscular HGB 34.2 pg (26.0-34.0); Mean Corpuscular HGB Conc 34.9 g/dL (31.5-36.5); Mean Corpuscular Volume 98 fL (80-100); Mean Platelet Volume 10.5 fL (9.1-12.4); NEUTROPHILS ABSOLUTE AUTO 11.54 K/mm3 (1.96-9.15); NEUTROPHILS PERCENT AUTO 86 % (41-73); Platelet Count 126 K/mm3 (150-400); RDW Standard Deviation 60.4 fL (35.1-46.3); Red Blood Cell Count 2.78 M/mm3 (4.30-5.90); White Blood Cell Count 13.47 K/mm3 (4.00-11.30)
[2020-12-19 04:23] LABS: Albumin, Blood 1.5 g/dL (3.4-5.0); Anion Gap 7 mmol/L (6-16); Blood Urea Nitrogen 36 mg/dL (8-24); Bun/Creatinine Ratio 25.4 (12.0-20.0); CO2, Blood 20 mmol/L (21-32); Calcium, Blood 7.5 mg/dL (8.5-10.1); Chloride, Blood 110 mmol/L (98-108); Creatinine, Blood 1.42 mg/dL (0.60-1.20); Glomerular Filtration Rate 49 (60-); Glucose, Blood 132 mg/dL (70-99); Potassium, Blood 5.1 mmol/L (3.5-5.5); Sodium, Blood 137 mmol/L (136-145)
--- NOTE | 2020-12-19 05:50 | NUR ---
ESCROW AGENT SUMMARY PT HAS REMAINED AXO X4 AND USES THE CALL LIGHT TO MAKE HIS NEEDS KNOWN. PT BEGAN SHIFT W O2 SATS >90% ON 15L OXYMIZER BUT HAD DESATTED INTO THE 70'S W MINIMAL MOVEMENT AND TOOK SEVERAL MINUTES TO RECOVER ABOVE 85% SO PROVIDER CONTACTED AND ORDER FOR AIRVO OBTAINED. PT HAS MAAINTAINED O2 SATS >92% ON 50L 75% ON AIRVO. PT DENYING ANY PAIN OR NAUSEA THIS SHIFT. PT HAD MULTIPLE SMALL BM'S THIS SHIFT. PT AFEBRILE THIS SHIFT. TELE SHOWING SR IN THE 60'S W MOMENTS OF SB IN THE 50'S WHILE ASLEEP. BP SOFT BUT STABLE THIS SHIFT W MAP >65.
[2020-12-19] MEDS ORDERED: ARTIFICIAL TEA1 EAC1 BOTHEYES (11:21)
--- NOTE | 2020-12-19 17:06 | NUR ---
SHIFT SUMMARY PT ALERT AND ORIENTED X 4. HE IS HARD OF HEARING BUT PLEASANT AND COOPERATIVE WITH CARE. SPO2 HAS RANGED FROM 75-94% DURING SHIFT. PT DESATURATES WITH EXERTION BUT RECOVERS QUICKLY. PT NOW ON AIRVO 55L/MIN AT 70% FIO2. TELE MONITORING REPORTED SINUS JOSÉ IN 50'S WITH INVERTED P WAVES, DR. TILLMAN MADE AWARE. PT WAS ABLE TO SIT IN CHAIR DURING SHIFT AND CORBIN WAS AT BEDSIDE. PT CONTINUES TO UTILIZE BEDSIDE URINAL AND BEDPAN, ATTENDS IN PLACE AND ARE CLEAN/DRY. LR INFUSING 125ML/HR PER ORDERS. PT HAS HAD SOFT PRESSURES DURING SHIFT BUT MAINTAINNIG MAP IN 60'S. ALSO MADE AWARE OF PRESSURES. PT DENIED CHEST PAIN/PRESSURE DURING SHIFT. HAS DENIED PAIN IN GENERAL. WILL CONTINUE TO MONITOR. PT NOW IN BED, CALL LIGHT IN REACH.
[2020-12-20 03:29] LABS: BASOPHILS ABSOLUTE AUTO 0.02 K/mm3 (0.00-0.23); BASOPHILS PERCENT AUTO 0 % (0-2); EOSINOPHILS ABSOLUTE AUTO 0.01 K/mm3 (0.00-0.68); EOSINOPHILS PERCENT AUTO 0 % (0-6); Hematocrit 27.7 % (37.0-53.0); Hemoglobin 9.7 g/dL (13.5-17.5); IMMATURE GRAN ABSOLUTE AUTO 0.13 K/mm3 (0.00-0.10); IMMATURE GRAN PERCENT AUTO 1 % (0-1); LYMPHOCYTES ABSOLUTE AUTO 1.02 K/mm3 (0.84-5.20); LYMPHOCYTES PERCENT AUTO 8 % (21-46); MONOCYTES PERCENT AUTO 7 % (4-13); Mean Corpuscular Volume 97 fL (80-100); Mean Platelet Volume 9.9 fL (9.1-12.4); NEUTROPHILS ABSOLUTE AUTO 11.42 K/mm3 (1.96-9.15); NEUTROPHILS PERCENT AUTO 85 % (41-73); Platelet Count 122 K/mm3 (150-400); RDW Coefficient Variation 17.1 % (11.7-14.2); RDW Standard Deviation 60.2 fL (35.1-46.3); Red Blood Cell Count 2.85 M/mm3 (4.30-5.90)
[2020-12-20 03:46] LABS: Albumin, Blood 1.4 g/dL (3.4-5.0); Anion Gap 7 mmol/L (6-16); Blood Urea Nitrogen 48 mg/dL (8-24); Bun/Creatinine Ratio 36.1 (12.0-20.0); CO2, Blood 19 mmol/L (21-32); Calcium, Blood 7.3 mg/dL (8.5-10.1); Chloride, Blood 111 mmol/L (98-108); Creatinine, Blood 1.33 mg/dL (0.60-1.20); Glomerular Filtration Rate 53 (60-); Glucose, Blood 143 mg/dL (70-99); Phosphorus, Blood 4.1 mg/dL (2.5-4.9); Potassium, Blood 4.5 mmol/L (3.5-5.5); Sodium, Blood 137 mmol/L (136-145)
--- NOTE | 2020-12-20 05:14 | NUR ---
[facility] SUMMARY PATIENT IS RESTING COMFORTABLY IN BED. BED IS IN LOW POSITION. CALL LIGHT IS IN REACH. VITALS WERE STABLE DURING THE NIGHT. NO ACUTE CHANGES DURING THE NIGHT. THE PATIENT IS DOING VERY WELL ON NASAL CANNULA ON 10L, HE IS SATURATING ABOVE 90%. PATIENT DID NOT WANT TO PRONE SO HE LAID ON HIS SIDES MOST OF THE NIGHT AND HE IS ABLE TO TURN ON HIS OWN. PATIENT IS ABLE TO GET UP TO THE BEDSIDE COMMODE WITH ASSISTANCE. PATIENT STATES HE IS FEELING BETTER. WILL CONTINUE TO MONITOR. REPORT WILL BE GIVEN TO DAY SHIFT RN.
--- NOTE | 2020-12-20 06:05 | NUR ---
SHIFT SUMMARY PATIENT IS RESTING COMFORTABLY IN BED. BED IS IN LOW POSITION. CALL LIGHT IS IN REACH. VITALS HAVE BEEN STABLE. BLOOD PRESSURE HAS BEEN ON THE LOW SIDE BUT BEEN STABLE DURING THE NIGHT AND HE IS ON FLUIDS. THE PATIENT IS CURRENTLY ON AIRVO 60L ON 80% FIO2 AND SATURATING ABOVE 88%. TRIED TO GET THE PAITENT TO PRONE BUT STATED HE WONT BE ABLE TO PRONE BUT AGREED TO TURN ON HIS SIDE FOR A COUPLE HOURS DURING THE NIGHT. NO COMPLAINS OF PAIN. THE PATIENT DESATURATED WITH EXCERTION BUT WAS ABLE TO RECOVER. PATIENT DID NOT AMBUALTE BUT IS ABLE TO MOVE AROUND IN BED. WILL CONTINUE TO MONITOR. REPORT WILL BE GIVEN TO CT NOVA RN.
--- NOTE | 2020-12-20 18:29 | NUR ---
SHIFT SUMMARY PT HAS BEEN RESTING THROUGHOUT THE DAY. PT HAS HAD NO C/O, PT HAS USED CALL LIGHT APPROPRIATELY FOR ASSISTANCE. PT WAS TRANSPORTED TO IMAGING VIA CART, TOLERATED WELL. PT SPOUSE CAME TO VISIT THIS AFTERNOON AND HAD NO QUESTIONS ABOUT CURRENT ILLNESS OR TREATMENT REGIMEN. PT HAS MAINTAINED AN SpO2 OF 86-92%, ON ONE OCCASION THE PT DESATTED DOWN TO 80% BUT RECOVERED STEADILY. PT HAS HAD MULTIPLE INSTANCES OF LOOSE, WATERY STOOL. NO OTHER ACUTE CHANGES NOTED.
[2020-12-21 04:18] LABS: BASOPHILS ABSOLUTE AUTO 0.03 K/mm3 (0.00-0.23); BASOPHILS PERCENT AUTO 0 % (0-2); EOSINOPHILS PERCENT AUTO 0 % (0-6); Hemoglobin 11.2 g/dL (13.5-17.5); IMMATURE GRAN ABSOLUTE AUTO 0.16 K/mm3 (0.00-0.10); IMMATURE GRAN PERCENT AUTO 1 % (0-1); LYMPHOCYTES ABSOLUTE AUTO 0.96 K/mm3 (0.84-5.20); LYMPHOCYTES PERCENT AUTO 7 % (21-46); MONOCYTES ABSOLUTE AUTO 0.81 K/mm3 (0.16-1.47); MONOCYTES PERCENT AUTO 6 % (4-13); Mean Corpuscular HGB 33.3 pg (26.0-34.0); Mean Corpuscular HGB Conc 33.9 g/dL (31.5-36.5); Mean Corpuscular Volume 98 fL (80-100); Mean Platelet Volume 10.2 fL (9.1-12.4); NEUTROPHILS ABSOLUTE AUTO 11.32 K/mm3 (1.96-9.15); NEUTROPHILS PERCENT AUTO 85 % (41-73); Platelet Count 165 K/mm3 (150-400); RDW Coefficient Variation 17.2 % (11.7-14.2); RDW Standard Deviation 62.8 fL (35.1-46.3); Red Blood Cell Count 3.36 M/mm3 (4.30-5.90); White Blood Cell Count 13.28 K/mm3 (4.00-11.30)
--- NOTE | 2020-12-21 04:28 | NUR ---
SHIFT SUMMARY PATIENT RESTING QUIETLY T/O SHIFT. USES CALL LIGHT APPROPRIATLEY. VITALS STABLE WITH SOME SOFT BP'S. PATIENT WEARING AIRVO AT 70L 100% FIO2 WITH OXYGEN SATURATION MAINTAINING LOW 90S. EDUCATED PATIENT ABOUT OPTIONS REGARDING MORE OXYGEN SUPPLEMENTATION AND POSSIBLE BIPAP. WHEN ASKED IF PATIENT WOULD LIKE TO TRY BIPAP, PATIENT STATED "NO", PATIENT EDUCATED ON IMPORTANCE OF PRONING BUT ONLY TOLERATED SIDE LYING. PATIENT HAD AN EPISODE OVERNIGHT OF MOVING SELF IN BED, TAKING OFF AIRVO AND OTHER CORDS AND DESATURATED. REPLACED AIRVO BACK IN PATIENT'S NOSE WITH NONREBREATHER OVER THE TOP. PATIENT ABLE TO RECOVER STEADILY. DENIES CHEST PAIN OR PRESSURE THROUGH OUT NIGHT. NO OTHER SIGNIFICANT CHANGES TO PATIENT'S STATUS, WILL REPORT TO DAY SHIFT.
[2020-12-21 04:36] LABS: Alanine Aminotransfer (ALT/SGP 39 U/L (12-78); Albumin, Blood 1.6 g/dL (3.4-5.0); Albumin/Globulin Ratio 0.4 (0.8-1.8); Alk Phos 148 U/L (50-136); Anion Gap 7 mmol/L (6-16); Aspartate Aminotrans (AST/SGOT 74 U/L (12-37); Bilirubin, Total 0.8 mg/dL (0.1-1.0); Blood Urea Nitrogen 48 mg/dL (8-24); CO2, Blood 21 mmol/L (21-32); Calcium, Blood 7.8 mg/dL (8.5-10.1); Chloride, Blood 110 mmol/L (98-108); Creatinine, Blood 1.17 mg/dL (0.60-1.20); Globulin, Blood 4.5 g/dL (2.2-4.0); Glomerular Filtration Rate >60 (60-); Glucose, Blood 169 mg/dL (70-99); Potassium, Blood 4.9 mmol/L (3.5-5.5); Sodium, Blood 138 mmol/L (136-145); Total Protein, Blood 6.1 g/dL (6.4-8.2)
[2020-12-21 07:10] LABS: PCO2 Arterial 31.1 mmHg (35-45); PO2 Arterial 62.5 mmHg (80-100); pH Blood Arterial 7.39 (7.35-7.45)
--- NOTE | 2020-12-21 09:39 | NUR ---
Pt resting in bed with his eyes closed. Mild anxiety noted. Currently on BIPAP. Met with family in Palliative Care Conference Room. Provided update and answered questions. Engaged in therapeutic conversation regarding goals of care. Discussed consideration of Pt's wishes and goals. Offered therapeutic listening. Escorted family back to Pt's room and assisted with doning PPE. Instructed to use Pt's call light for any questions or concerns. Spoke with Dr Bradley, Primary RNs Nina and Jaycob prior to Pt visit. Pt's respiratory status continues to decline. Pt's wishes are DNR/DNI. Pt has guarded prognosis. Palliative Care will remain available.
--- NOTE | 2020-12-21 17:35 | NUR ---
SHIFT NOTE PT HAS STEADILY BECOME MORE CONFUSED T/O THE SHIFT, MORE AGITATED. PT REMOVES MASK SEVERAL TIMES, PT STS THAT HE UNDERSTANDS THE IMPORTANCE OF LEAVING MASK IN PLACE BUT IS FORGETFUL AND REMOVES MASK. PT DOES DESATURATE QUICKLY WHEN MASK IS REMOVED. FAMILY MEETING WAS CALLED TODAY WITH DR MOORE AND PALLIATIVE CARE, MULTIPLE FAMILY WAS ALLOWED IN ROOM TO MAKE DECISION FOR COMFORT CARE, NO DECISIONS WERE MADE FOR COMFORT CARE, DR MOORE DID THOROUGHLY EDUCATE FAMILY ON PROGNOSIS AND EXPECTED OUTCOME. FAMILY REQUESTED THAT MORE THAN 5 FAMILY MEMBERS BE ALLOWED IN TODAY WHICH WAS DENIED BECAUSE OF CURRENT VISTOR POLICY. FAMILY REQUESTS THAT ADDITIONAL FAMILY MEMBERS BE ALLOWED IN TOMORROW, FAMILY IS AGAIN EDUCATED ON VISITOR POLICY, PT REMAINS DNR BUT NO COMFORT CARE AT THIS TIME.
--- NOTE | 2020-12-21 21:09 | NUR ---
ORIENTATION/RESP STATUS 1899 IRAIDA Araujo RN IN ROOM. PT RIPPED OFF BIPAP MASK, SPO2 <60%. PT DID NOT RECOVER >88% FOR 4 MINUTES. PT'S MENTATION PRESENTS CONFUSED, NOT ORIENTED AND AGITATED. THIS RN CALLED FAMILY TO URTHER DISCUSS DECISIONS REGARDING COMFORT CARE VS FURTHER TREATMENT. DENNIS, PT'S CALLED [phone], DISCUSSED PT'S CONTINUED DECLINING RESP STATUS AND MENTATION. PT'S ELECTING FOR CONTINUED TREATMENT AND STATES TO CONTINUE TO KEEP GIVING MEDICATIONS TO MAKE "PT SLEEP AND KEEP MASK ON". MADE AWARE THAT PT WAS NOT LOOKING GOOD AND ALERTED THAT THIS RN WOULD CALL HER IF PT WAS BEGINNING TO DECLINE EVEN FURTHER. THANKFUL FOR THIS. CALLED DR SERRANO REGARDING PT PULLING MASK OFF WELL DISCUSSION WITH PT'S . PROVIDER ORDERS 1MG ATIVAN X1 AND THEN Q3HR PRN. 1925 ATIVAN 1MG ADMINISTERED. 1949 MAGGIE NOTIFIED THAT PT STILL NOT KEEPING MASK ON, DISORIENTED, ETC. DISCUSSED NOT WANTING TO PHYSICALLY RESTRAIN OR PLACE ON PRECEDEX AND SENDING PT TO ICU. ELECTED FOR A PRN DOSE OF 3MG HALDOLAND 10MG IM ZYPREXA FIRST. 2019 IM ZYPREXA ADMINISTERED AT 2019. AWAITING TO SEE OF HALDOL NEEDED. 2199 PT RESTING QUIETELY CURRENTLY.
--- NOTE | 2020-12-22 04:48 | NUR ---
SHIFT SUMMARY PATIENT RESPONDS TO VERBAL STIMULI, PATIENT MAKING MOANING/GRUNTING NOISES WHEN STAFF AT BEDSIDE. NOT RESPONDING TO QUESTIONS. BIPAP IN PLACE, SETTINGS ARE 18/12/100% FIO2, OXYGEN SATURATION ABOVE 90% AT REST BUT PATIENT DESATS WITH ANY KIND OF EXERTION. PATIENT NONCOMPLAINT WITH BIPAP AT TIMES WHEN RESTLESS AND AGITATED, RAPIDLY DESATS DURING TURNS AND ORAL CARE. INCREASED WORK OF BREATHING THIS SHIFT WITH RESPIRATIONS AT MAX IN THE 50s. PRN MEDICATIONS ORDERED T/O NIGHT, SEE EMAR. DIVE SUPERINTENDENT CALLED PATIENT'S WITH UPDATE, SEE PREVIOUS NOTE. NO COMFORT CARE MEASURES AT THIS TIME PER , PATIENT REMAINS DNR/DNI. WILL CONTINUE TO MONITOR AND REPORT TO DAY SHIFT RN.
[2020-12-22 04:56] LABS: BASOPHILS ABSOLUTE AUTO 0.01 K/mm3 (0.00-0.23); BASOPHILS PERCENT AUTO 0 % (0-2); EOSINOPHILS PERCENT AUTO 0 % (0-6); Hematocrit 31.7 % (37.0-53.0); Hemoglobin 10.8 g/dL (13.5-17.5); IMMATURE GRAN ABSOLUTE AUTO 0.18 K/mm3 (0.00-0.10); IMMATURE GRAN PERCENT AUTO 1 % (0-1); LYMPHOCYTES ABSOLUTE AUTO 0.85 K/mm3 (0.84-5.20); LYMPHOCYTES PERCENT AUTO 7 % (21-46); MONOCYTES ABSOLUTE AUTO 0.72 K/mm3 (0.16-1.47); MONOCYTES PERCENT AUTO 6 % (4-13); Mean Corpuscular HGB 33.4 pg (26.0-34.0); Mean Corpuscular HGB Conc 34.1 g/dL (31.5-36.5); Mean Corpuscular Volume 98 fL (80-100); Mean Platelet Volume 9.6 fL (9.1-12.4); NEUTROPHILS ABSOLUTE AUTO 11.18 K/mm3 (1.96-9.15); NEUTROPHILS PERCENT AUTO 86 % (41-73); Platelet Count 116 K/mm3 (150-400); RDW Coefficient Variation 17.2 % (11.7-14.2); RDW Standard Deviation 62.3 fL (35.1-46.3); Red Blood Cell Count 3.23 M/mm3 (4.30-5.90); White Blood Cell Count 12.94 K/mm3 (4.00-11.30)
[2020-12-22 05:11] LABS: Albumin, Blood 1.9 g/dL (3.4-5.0); Anion Gap 8 mmol/L (6-16); Blood Urea Nitrogen 55 mg/dL (8-24); CO2, Blood 19 mmol/L (21-32); Calcium, Blood 7.9 mg/dL (8.5-10.1); Chloride, Blood 114 mmol/L (98-108); Creatinine, Blood 1.17 mg/dL (0.60-1.20); Glomerular Filtration Rate >60 (60-); Glucose, Blood 176 mg/dL (70-99); Phosphorus, Blood 4.7 mg/dL (2.5-4.9); Potassium, Blood 4.7 mmol/L (3.5-5.5); Sodium, Blood 141 mmol/L (136-145)
--- NOTE | 2020-12-22 08:10 | NUR ---
Update: Pt appears very uncomfortable. Grunting with RR 40-50's. On bipap 18/12 with FIO2 at 100%. Biox 90. Pt medicated with ativan per orders. Jarad in Palliative care notified and he will contact pt to update on condition. Will continue to monitor. Bed alarm, cont pulse ox and heart monitors in place.
--- NOTE | 2020-12-22 09:11 | NUR ---
Case Conference Note Received call from PCU light rail transit operator Gabe. Pt is declining with respirations in 50's and maxed on BIPAP support. Pt also saying the "Lord's Prayer". Pt also attempting to take BIPAP off. Family may benefit from revisiting goals of care. Called and spoke with Pt's spouse Karon. Provided update and offered therapeutic listening. Karon reports plan to call family to discuss further regarding considering comfort care. Palliative Care will remain available.
--- NOTE | 2020-12-22 11:02 | NUR ---
Pt's spouse and granddaughter has arrived. Pt resting in bed, appears, anxious, and dyspneic. Offered therapeutic listening as spouse Karon reports family is agreeable and have elected to pursue comfort care for Pt. Answered questions and continued therapeutic listening. Called and spoke with Dr Bradley. Dr Bradley also in agreement with family's decision. Placed comfort care order, comfort care order set, D/C maintenance medications,and order Ativan 1-2mg IV Q 4 hours PRN per V/O from Dr Bradley. Spoke with Primary RN Nina, discussed case, and reviewed comfort medications. Palliative Care will remain available.
--- NOTE | 2020-12-22 11:21 | NUR ---
TOTAL OF 6 FAMILY ALLOWED TO ROOM FOR WITHDRAWL OF CARE. COMFORT CART IN ROOM. PT HAS RECIEVED HALDOL AND ATIVAN FOR AGITATION. WILL PROCEED WITH ADMINISTERING MORPHINE FOR AIR HUNGER PRIOR TO REMOVING BIPAP AND PLACING PT ONTO N/C
--- NOTE | 2020-12-22 14:18 | NUR ---
F/U Comfort Care Visit Spoke with Primary RN Nina, telecom analyst Del and discussed case. Reviewed comfort medications. Pt resting in bed upon arrival. Pt's voice makes a groan sound when exhaling. Assisted Del in repositioning Pt to his left side. No non verbal indicators of discomfort noted. Reassured family and educated on actively dying process. Remained with Pt and family for support and therapeutic listening. Pt appears comfortable and appears to be actively dying. Palliative Care will remain available for symptom management and support visits.
--- NOTE | 2020-12-22 17:17 | NUR ---
colabortive care meeting with nursing and palliative care team form difficult symptom management. Included patients utilization management nurse in the meeting. Pt moaning and releasing some stress along with some difficult air hunger. increased medication for symptoms was effective.
--- NOTE | 2020-12-22 18:04 | NUR ---
PT PLACED ON COMFORT CARE. PT CURRENTLY WITH AGONAL BREATHING. MULTIPLE FAMILY AT BEDSIDE
== END 2020-12-22 19:09 | DRG 871 ==
LOC: ER 19:27 → ERHOLD 19:28 → PCU 12-18 00:11 → ERHOLD 12-18 00:12 → PCU 12-18 00:32
PROVIDERS: Family Medicine; Internal Medicine; Physician Assistant; ADMIT Internal Medicine
PROC: 8E0ZXY6 Isolation (ICD-10-PCS; principal; 2020-12-18)
PROC: 5A09457 Assistance with Respiratory Ventilation, 24-96 Consecutive Hours, Continuous Positive Airway Pressure (ICD-10-PCS; 2020-12-18)
PROC: XW033E5 Introduction of Remdesivir Anti-infective into Peripheral Vein, Percutaneous Approach, New Technology Group 5 (ICD-10-PCS; 2020-12-18)
PROC: 3E0333Z Introduction of Anti-inflammatory into Peripheral Vein, Percutaneous Approach (ICD-10-PCS; 2020-12-18)
DX: A41.89 Other specified sepsis (principal); J12.82 Pneumonia due to coronavirus disease 2019; R65.21 Severe sepsis with septic shock; G92.9 Unspecified toxic encephalopathy; J80 Acute respiratory distress syndrome; Z66 Do not resuscitate; Z51.5 Encounter for palliative care; E87.1 Hypo-osmolality and hyponatremia; I85.10 Secondary esophageal varices without bleeding; E87.2 Acidosis; D63.1 Anemia in chronic kidney disease; J43.9 Emphysema, unspecified; N18.30 Chronic kidney disease, stage 3 unspecified; I12.9 Hypertensive chronic kidney disease with stage 1 through stage 4 chronic kidney disease, or unspecified chronic kidney disease; F32.A Depression, unspecified; E88.09 Other disorders of plasma-protein metabolism, not elsewhere classified; Z28.21 Immunization not carried out because of patient refusal; D69.6 Thrombocytopenia, unspecified; K74.60 Unspecified cirrhosis of liver; Z98.890 Other specified postprocedural states; Z86.73 Personal history of transient ischemic attack (TIA), and cerebral infarction without residual deficits; Z88.8 Allergy status to other drugs, medicaments and biological substances; Z79.899 Other long term (current) drug therapy
CPT/HCPCS: 36415; 36416; 36600; 71045; 71260; 80053; 80069; 82803; 83605; 83880; 84145; 84484; 85025; 87040; 87070; 87106; 87205; 93005; 93010; 94644; 94660; 94762; 96365; 96366; 96367; 96375; 99285-25; A9270; J0696; J1100; J1630; J1650; J1956; J2060; J2270; J2543; J2930; J3370; J7030; J7050; J7120; P9046; Q9967; U0004